=== PATIENT | female | born 1965 | race Caucasian/White ===

== ENCOUNTER 2020-03-09 13:32 | Inpatient (IN) | payer MEDICAID ==
[~2020-03-09] VITALS: Ht 165.1 cm; Wt 75.7 kg
[2020-03-09] MEDS ORDERED: OMEP20 PO (15:06)
[2020-03-09] MEDS ORDERED: APIX5TAB PO (15:06)
[2020-03-09 15:30] LABS: BASOPHILS % (AUTO) 0.7 % (0.0-2.0); EOSINOPHILS % (AUTO) 8.5 % (1.0-6.0); HEMATOCRIT 41.3 % (36-46); HEMOGLOBIN 14.1 g/dL (12.0-16.0); LYMPHOCYTES # (AUTO) 2.9 K/uL (1.0-4.8); LYMPHOCYTES % (AUTO) 33.3 % (22.0-44.0); MEAN CORPUSCULAR HGB CONC 34.2 G/dL (31.0-37.0); MEAN CORPUSCULAR VOLUME 91 fL (80-100); MONOCYTES # (AUTO) 0.8 K/uL (0.1-1.0); MONOCYTES % (AUTO) 9.5 % (2.0-9.0); NEUTROPHILS # (AUTO) 4.3 K/uL (1.8-7.7); PLATELET COUNT (AUTO) 255 K/uL (150-450); RED BLOOD CELL COUNT(AUTO) 4.56 MIL/uL (4.00-5.20); RED CELL DISTRIBUTION WIDTH 18.2 % (11.5-14.5)
[2020-03-09 15:43] LABS: ANION GAP 11 mmol/L (8-16); CALCIUM, TOTAL 8.9 mg/dL (8.8-10.5); CARBON DIOXIDE 28 mmol/L (22-29); CHLORIDE 109 mmol/L (98-107); CREATININE 0.61 mg/dL (0.60-1.30); GLOMERULAR FILTR. RATE CALC > 60 mL/min (>60); GLUCOSE,RANDOM 94 mg/dL (70-110); POTASSIUM 3.9 mmol/L (3.5-5.1); SODIUM SERUM 148 mmol/L (136-145); UREA NITROGEN, BLOOD 8 mg/dL (7-18)
[2020-03-09 15:56] LABS: ALANINE AMINOTRANSFERASE 49 U/L (12-78); ALKALINE PHOSPHATASE 116 U/L (46-116); ASPARTATE AMINOTRANSFERASE 52 U/L (15-37); BILIRUBIN,TOTAL 1.2 mg/dL (0.1-1.0); HCG,QUANTITATIVE 2 mIU/mL (0-6); TOTAL PROTEIN, SERUM 8.1 g/dL (6.4-8.2)
[2020-03-09] MEDS ORDERED: HALOPERIDOL 5 MG TABLET PO PRN (16:15)
[2020-03-09] MEDS ORDERED: ZOLPIDEM TARTRATE 10 MG TABLET PO PRN (16:15)
[2020-03-09] MEDS ORDERED: LORazepam 2 MG TABLET PO PRN (16:15)
[2020-03-09 16:18] LABS: COVID AG,FIA SOURCE NASOPHARYNGEAL
[2020-03-09] MEDS ORDERED: ONDANSETRON HCL 4 MG TABLET PO ONE (17:00)
[2020-03-09 20:49] VITALS: BP 145/109
[2020-03-09] MEDS ORDERED: BENZOCAINE/MENTHOL LOZENGE PO PRN (22:00)
[2020-03-09] MEDS ORDERED: ONDANSETRON HCL 4 MG TABLET PO PRN (22:00)
[2020-03-09] MEDS ORDERED: SIMETHICONE 80 MG CHEWABLE TABLET CHEW PRN (22:00)
[2020-03-09] MEDS ORDERED: MAG HYDROX/AL HYDROX/SIMETH ES 30 ML SUSPENSION UDCUP PO PRN (22:00)
[2020-03-09] MEDS ORDERED: LOPERAMIDE HCL 2 MG CAPSULE PO PRN (22:00)
[2020-03-09] MEDS ORDERED: ACETAMINOPHEN 325 MG TABLET PO PRN (22:00)
[2020-03-09] MEDS ORDERED: BACITRACIN 28 GM OINTMENT TP PRN (22:00)
[2020-03-09] MEDS ORDERED: MAGNESIUM HYDROXIDE SUSPENSION 30 ML UDCUP PO PRN (22:00)
[2020-03-09] MEDS ORDERED: DOCUSATE SODIUM 100 MG CAPSULE PO PRN (22:00)
[2020-03-09] MEDS ORDERED: IBUPROFEN 600 MG TABLET PO PRN (22:00)
[2020-03-09] MEDS ORDERED: PETROLATUM,WHITE 28 GM JELLY TP PRN (22:00)
[2020-03-09] MEDS ORDERED: CloNIDine HCL 0.1 MG TABLET PO PRN (22:00)
[2020-03-09] MEDS ORDERED: ALBUTEROL SULFATE HFA 90 MCG/PUFF 8 GM INHALER IH PRN (22:00)
[2020-03-10] MEDS ORDERED: SIMETHICONE 80 MG CHEWABLE TABLET CHEW PRN (02:00)
[2020-03-10 07:46] LABS: CHOL/HDL RATIO 1.7 (3.9-5.7); FREE T4 (FREE THYROXINE) 0.99 ng/dL (0.76-1.46); THYROID STIMULATING HORMONE 0.5 uIU/mL (0.36-3.74)
[2020-03-10] MEDS ORDERED: OMEPRAZOLE 20 MG CAPSULE PO SCH (09:00)
[2020-03-10] MEDS ORDERED: POLYETHYLENE GLYCOL 3350 17 GM PACKET PO SCH (09:00)
[2020-03-10] MEDS ORDERED: APIXABAN 5 MG TABLET PO SCH (09:00)
[2020-03-10 10:16] VITALS: BP 148/96
[2020-03-10] MEDS ORDERED: POLY17PO47 PO (13:30)
== END 2020-03-10 14:40 | disposition home or self-care (01) | DRG 881 ==
LOC: EMS 13:36 → 3EI 16:14
PROVIDERS: ADMIT Psychiatry & Neurology Psychiatry; ATTEND Psychiatry & Neurology Psychiatry
DX: F32.9 Major depressive disorder, single episode, unspecified (principal); R45.851 Suicidal ideations; Z20.828 Contact with and (suspected) exposure to other viral communicable diseases; K59.00 Constipation, unspecified; F41.9 Anxiety disorder, unspecified; G47.00 Insomnia, unspecified; Z91.041 Radiographic dye allergy status; Z86.718 Personal history of other venous thrombosis and embolism; Z91.410 Personal history of adult physical and sexual abuse
CPT/HCPCS: 84439; 84443; 87426; G0480; Q0162